=== PATIENT | male | born 1965 | race Two or more races ===

== ENCOUNTER 2019-01-11 05:21 | Emergency (ER) | payer BC, SELFPAY ==
[~2019-01-11] VITALS: Ht 165.1 cm; Wt 89.7 kg
[2019-01-11 05:23] VITALS: BP 136/97
--- NOTE | 2019-01-11 05:45 | NUR ---
PT HERE FOR PAINFUL URINATION AND TESTICULAR PAIN. PT TO GIVE UA.PT IN NAD. CALL LIGHT IN REACH
--- NOTE | 2019-01-11 06:10 | NUR ---
PT ELOPED PRIOR TO MD SEEING. PT LEFT BY REGISTRATION
== END 2019-01-11 06:34 | disposition left against medical advice (07) ==
LOC: ED 06:10
DX: N50.819 Testicular pain, unspecified (principal); Z53.21 Procedure and treatment not carried out due to patient leaving prior to being seen by health care provider